=== PATIENT | male | born 1960 | race Caucasian/White ===

== ENCOUNTER 2016-10-17 18:40 | Emergency (ER) | payer BC ==
[2016-10-17] MEDS ORDERED: NEB-ALBUTEROL 2.5 MG/3 ML INH ONE (22:45)
[2016-10-17] MEDS ORDERED: CEFTRIAXONE 1 GM VIAL ONE (23:51)
== END 2016-10-18 00:04 | disposition home or self-care (01) ==
LOC: ER 18:40
CPT/HCPCS: 36415; 71020; 80053; 82553; 83880; 84484; 85025; 93005; 94640; 96372